=== PATIENT | female | born 1990 ===

== ENCOUNTER 2018-08-22 09:11 | Emergency (ER) | payer OTHER ==
[2018-08-22 09:30] VITALS: BP 102/72; PULSE 103; RESP 20; TEMP 97.6; O2SAT 96; BMI 32.1
--- NOTE | 2018-08-22 09:34 | C.PDOC ---
History Of Present Illness 27 yo female, hx of asthma, presnts with cough congestions sore thorat, subjective fever x 3 days. no wheezing no sick contacts no flu shot. HPI: Influenza Time Seen by Provider: 08/22/18 09:24 Chief Complaint: Flu-like Symptoms Past Medical History Reviewed: Historical Data, Nursing Documentation, Vital Signs Vital Signs: Last Vital Signs Temp 97.6 F 08/22/18 09:18 Pulse 103 H 08/22/18 09:18 Resp 20 08/22/18 09:18 BP 102/72 08/22/18 09:18 Pulse Ox 96 08/22/18 09:18 - Medical History PMH: Asthma - [facility] Procedures EXTRACTION OF POC, LOW CERVICAL, OPEN APPROACH (05/05/16) MONITORING OF POC, CARDIAC RATE, ADDICTIONS THERAPIST APPROACH (05/05/16) Family History: States: Unknown Family Hx - Social History Hx Tobacco Use: No Hx Alcohol Use: No Hx Substance Use: No - Immunization History Hx Tetanus Toxoid Vaccination: No Hx Influenza Vaccination: No Hx Pneumococcal Vaccination: No Review Of Systems Constitutional: Positive for: Fever Respiratory: Positive for: Cough Physical Exam - Physical Exam Appears: Well, No Acute Distress, Other Skin: Normal Color, Warm, Dry Eye(s): bilateral: Normal Inspection, PERRL, EOMI Nose: Normal Throat: Normal, Erythema, No Exudate Neck: Normal, Normal ROM Lymphatic: No Adenopathy Cardiovascular: Rhythm Regular Respiratory: Normal Breath Sounds Gastrointestinal/Abdominal: Normal Exam, Soft, No Tenderness, No Guarding, No Rebound Back: Normal Inspection Extremity: Normal ROM Medical Decision Making Medical Decision Making: lungs cta. pt welll appearing, high clinical suspiction for influenza. will treat. - ECG O2 Sat by Pulse Oximetry: 96 Disposition - Disposition Referrals: [facility] [Outside] [facility] [Outside] Disposition: HOME/ ROUTINE Disposition Time: 09:34 Condition: STABLE Additional Instructions: return to er with worsening symptoms or concerns. Prescriptions: Oseltamivir Phosphate [Tamiflu] 75 mg PO BID #10 capsule Instructions: Viral Syndrome (DC), Flu - Clinical Impression Clinical Impression: Influenza-like illness
== END 2018-08-22 09:53 | disposition home or self-care (01) ==
LOC: C.ER 09:11
DX: J11.1 Influenza due to unidentified influenza virus with other respiratory manifestations (principal)

== ENCOUNTER 2018-12-05 09:28 | Outpatient (CLI) | payer OTHER | END 2018-12-05 09:29 | disposition home or self-care (01) | LOC: C.LAB 09:28 | DX: Z00.00 Encounter for general adult medical examination without abnormal findings (principal) ==